=== PATIENT | male | born 1950 | race American Indian/Alaskan Native ===

== ENCOUNTER 2017-02-22 12:06 | Emergency (ER) | payer MEDICARE ==
--- NOTE | 2017-02-22 13:02 | Cat Scan Report ---
Cranial CT without contrast. History: Headache after trauma. Findings: There is no evidence of acute hemorrhage or infarct. The posterior fossa is normal. The ventricles are normal in size and contour. There are no masses or extra-axial collections. The calvarium is intact. Impression: No acute findings.
[2017-02-22 13:55] LABS: Hematocrit 40.7 % (35.5-45.6); Hemoglobin 13.8 gm/dl (11.8-15.2); Mean Corpuscular HGB Conc 34 % (32-34); Mean Corpuscular Hemoglobin 33 pg (28-32); Mean Corpuscular Volume 97 fl (84-94); Platelet Count 255 K/mm3 (140-440); Red Blood Count 4.22 M/mm3 (3.65-5.03); Red Cell Distribution Width 12.9 % (13.2-15.2); White Blood Count 10.4 K/mm3 (4.5-11.0)
[2017-02-22 14:04] LABS: INR 0.98 (0.87-1.13)
[2017-02-22 14:05] LABS: Partial Thromboplastin Time 30.7 Sec. (24.2-36.6)
[2017-02-22 14:07] LABS: Calcium 9.4 mg/dL (8.4-10.2); Chloride 97.4 mmol/L (98-107); Potassium 3.8 mmol/L (3.6-5.0)
--- NOTE | 2017-02-22 16:38 | Emergency Department Report ---
ED General Adult HPI - General Chief complaint: Head Injury Stated complaint: FALL HEAD INJURY Time Seen by Provider: 02/22/17 16:35 Source: patient, family Mode of arrival: Wheelchair Limitations: Other - History of Present Illness Initial comments: Patient states that he was recovering from his sedation for his colonoscopy. He was still wheezy when he tried to get up. He momentarily lost his balance and fell and hit his head. He did not suffer any loss of consciousness. He does not complain of any significant headache. His professor of nursing called me because he was concerned that the patient had prior been on Coumadin. Patient's Coumadin was discontinued 7 days ago for his colonoscopy. He is actually asymptomatic at this time. -: Gradual Location: head Radiation: non-radiation Severity scale (0 -10): 0 Quality: aching Consistency: now resolved Improves with: none Worsens with: none Associated Symptoms: denies other symptoms Treatments Prior to Arrival: none - Related Data Allergies Allergy/AdvReac Type Severity Reaction Status Date / Time Penicillins Allergy Unknown Verified 02/22/17 12:23 ED Review of Systems ROS: Stated complaint: FALL HEAD INJURY Other details as noted in HPI Constitutional: denies: chills, fever Eyes: denies: eye pain, eye discharge, vision change ENT: denies: ear pain, throat pain Respiratory: denies: cough, shortness of breath, wheezing Cardiovascular: denies: chest pain, palpitations Endocrine: no symptoms reported Gastrointestinal: denies: abdominal pain, nausea, diarrhea Genitourinary: denies: urgency, dysuria Musculoskeletal: denies: back pain, joint swelling, arthralgia Skin: denies: rash, lesions Neurological: headache (now resolved). denies: weakness, paresthesias Psychiatric: denies: anxiety, depression Hematological/Lymphatic: denies: easy bleeding, easy bruising ED Past Medical Hx - Past Medical History Previous Medical History?: Yes Additional medical history: Prior anticoagulation pacemaker - Social History Smoking Status: Never Smoker Substance Use Type: Alcohol ED Physical Exam - General Limitations: No Limitations General appearance: alert, in no apparent distress - Head Head exam: Present: normocephalic, other (perhaps some soft tissue swelling but no significant tenderness and no hematoma of the right forehead) - Eye Eye exam: Present: normal appearance, PERRL, EOMI. Absent: scleral icterus - ENT ENT exam: Present: normal exam, mucous membranes moist - Neck Neck exam: Present: normal inspection. Absent: tenderness, meningismus - Respiratory Respiratory exam: Present: normal lung sounds bilaterally. Absent: respiratory distress - Cardiovascular Cardiovascular Exam: Present: regular rate, normal rhythm. Absent: systolic murmur, diastolic murmur, rubs, gallop - GI/Abdominal GI/Abdominal exam: Present: soft, normal bowel sounds. Absent: distended, tenderness, guarding, rebound - Rectal Rectal exam: Present: deferred - Extremities Exam Extremities exam: Present: normal inspection - Back Exam Back exam: Present: normal inspection - Neurological Exam Neurological exam: Present: alert, oriented X3, CN II-XII intact. Absent: motor sensory deficit - Psychiatric Psychiatric exam: Present: normal affect, normal mood - Skin Skin exam: Present: warm, dry, intact, normal color. Absent: rash ED Course Vital Signs 02/22/17 02/22/17 02/22/17 12:23 14:02 14:03 Temperature 97.9 F 98.1 F Pulse Rate 60 61 Respiratory 18 12 12 Rate Blood Pressure 140/77 Blood Pressure 147/79 [Right] O2 Sat by Pulse 100 100 100 Oximetry 02/22/17 16:38 Temperature Pulse Rate 60 Respiratory 17 Rate Blood Pressure Blood Pressure 139/78 [Right] O2 Sat by Pulse Oximetry ED Medical Decision Making - Lab Data Result diagrams: 02/22/17 13:16 02/22/17 13:16 Laboratory Results - last 24 hr 02/22/17 02/22/17 02/22/17 13:16 13:16 13:16 WBC 10.4 RBC 4.22 Hgb 13.8 Hct 40.7 MCV 97 H MCH 33 H MCHC 34 RDW 12.9 L Plt Count 255 PT 13.5 INR 0.98 APTT 30.7 Sodium 137 Potassium 3.8 Chloride 97.4 L Carbon Dioxide 22 Anion Gap 21 BUN 25 H Creatinine 1.7 H Estimated GFR 49 BUN/Creatinine Ratio 15 Glucose 165 H POC Glucose Calcium 9.4 02/22/17 16:03 WBC RBC Hgb Hct MCV MCH MCHC RDW Plt Count PT INR APTT Sodium Potassium Chloride Carbon Dioxide Anion Gap BUN Creatinine Estimated GFR BUN/Creatinine Ratio Glucose POC Glucose 160 H Calcium - EKG Data -: EKG Interpreted by [place] Rate: normal - EKG Data Interpretation: nonspecific ST-T wave sunshine, other (atrial pacing with complete capture long FL interval I don't see a ventricular spike however) Critical care attestation.: If time is entered above; I have spent that time in minutes in the direct care of this critically ill patient, excluding procedure time. ED Disposition Clinical Impression: Pacemaker Minor head injury Qualifiers: Encounter type: initial encounter Qualified Code(s): S00.90XA - Unspecified superficial injury of unspecified part of head, initial encounter Disposition: DC- TO HOME OR SELFCARE Is pt being admited?: No Does the pt Need Aspirin: No Condition: Stable Instructions: Minor Head Injury (ED) Additional Instructions: Acute change or problem. I would recommend a hold Coumadin for at least 24 hours. Referrals: PRIMARY CARE, [Primary Care Provider] - 3-5 Days Time of Disposition: 16:57
[2017-02-22 16:39] VITALS: BP 139/78
== END 2017-02-22 17:05 | disposition home or self-care (01) ==
LOC: ED 12:06
DX: S09.90XA Unspecified injury of head, initial encounter (principal); Z95.0 Presence of cardiac pacemaker; W18.30XA Fall on same level, unspecified, initial encounter; Y93.89 Activity, other specified; Y92.89 Other specified places as the place of occurrence of the external cause; Y99.8 Other external cause status
CPT/HCPCS: 36415; 70450; 80048; 82962; 85027; 85610; 85730; 93005; 93010